=== PATIENT | male | born 1975 | race Caucasian/White ===

== ENCOUNTER 2024-05-13 08:53 | Emergency (ER) | payer SELFPAY ==
[2024-05-13 09:16] VITALS: BP 180/112; PULSE 82; RESP 18; TEMP 98.1; BMI 24.3
[2024-05-13] MEDS ORDERED: AMOX TR/POT CLAV 875MG/125MG TABLETS (FP) ONE (10:10)
[2024-05-13] MEDS: DOXYCYCLINE HYCLATE 100 MG CAPSULE PO ONE (10:11)
[2024-05-13] MEDS: AMOX TR/POT CLAV 875MG/125MG TABLETS (FP) PO ONE (10:11)
[2024-05-13] MEDS ORDERED: DOXYCYCLINE HYCLATE 100 MG CAPSULE PO ONE (10:11)
== END 2024-05-13 10:46 | disposition home or self-care (01) ==
LOC: JER 08:53
DX: A69.20 Lyme disease, unspecified (principal); R21 Rash and other nonspecific skin eruption; M79.89 Other specified soft tissue disorders
CPT/HCPCS: 36415; 86618; 93005; 93010; 99283-25